=== PATIENT | female | born 1995 | race African-American/Black ===

== ENCOUNTER 2020-09-06 17:11 | Emergency (ER) | payer OTHER ==
[~2020-09-06] VITALS: Ht 165.1 cm; Wt 100.0 kg
[2020-09-06 17:16] VITALS: BP 106/67; Ht 165.1 cm; Wt 100.0 kg
[2020-09-06 17:47] LABS: NITRITE NEGATIVE (NEGATIVE)
[2020-09-06 17:48] LABS: BILIRUBIN NEGATIVE (NEGATIVE); KETONE NEGATIVE (NEGATIVE); UROBILINOGEN NORMAL mg/dL (< 2)
[2020-09-06 17:50] LABS: BACTERIA FEW HPF (NONE SEEN); HCG URINE NEGATIVE (NEGATIVE); WHITE CELLS - URINE 0-5 HPF (0-4)
[2020-09-06] MEDS ORDERED: DIFLUCAN150 MG PO (18:32)
[2020-09-06 19:11] LABS: BASOPHILS 0.2 % (0-2); EOSINOPHILS 0.6 % (0-7); HEMATOCRIT 39.3 % (36.0-48.0); HEMOGLOBIN 13.2 g/dL (12-16); IMMATURE GRANULOCYTES 0.2 % (0-5); LYMPHOCYTE ABS# 4.45 10x3/uL (1.18-3.74); LYMPHOCYTES 35.3 % (15-50); MCH 28.6 pg (26.0-34.0); MCHC 33.6 g/dL (31.0-37.0); MCV 85.1 fL (80.0-100.0); MEAN PLATELET VOLUME 12.2 fL (7.4-10.4); MONOCYTES 5.9 % (2-11); NEUTROPHILS 57.8 % (40-80); PLATELET COUNT 323 10x3/uL (130-400); RBC 4.62 10x6/uL (4.00-5.40); RDW 14.2 % (11.5-14.5); WBC 12.6 10x3/uL (4.8-10.8)
[2020-09-06 19:28] LABS: ANION GAP 14.9 mmol/L (8-16); CALCIUM 9.4 mg/dL (8.5-10.1); CARBON DIOXIDE 24.9 mmol/L (21.0-32.0); POTASSIUM - SERUM 3.8 mmol/L (3.5-5.1)
[2020-09-06 19:34] LABS: ALBUMIN 3.6 g/dL (3.4-5.0); BILIRUBIN - TOTAL 0.67 mg/dL (0.2-1.3); PROTEIN - SERUM 7.4 g/dL (6.4-8.2)
== END 2020-09-06 20:09 | disposition left against medical advice (07) ==
LOC: D.ER 17:11
PROVIDERS: Family Medicine
DX: N89.8 Other specified noninflammatory disorders of vagina (principal); R10.819 Abdominal tenderness, unspecified site

== ENCOUNTER 2020-09-13 19:13 | Emergency (ER) | payer OTHER ==
[~2020-09-13] VITALS: Ht 165.1 cm; Wt 90.9 kg
[~2020-09-13 19:13] MED LIST: DIFLUCAN150 MG PO
[2020-09-13 19:29] VITALS: Ht 165.1 cm; Wt 90.9 kg
[2020-09-13 20:05] LABS: BASOPHILS 0.2 % (0-2); EOSINOPHILS 0 % (0-7); HEMATOCRIT 38.1 % (36.0-48.0); IMMATURE GRANULOCYTES 0.2 % (0-5); LYMPHOCYTE ABS# 3.24 10x3/uL (1.18-3.74); LYMPHOCYTES 25.1 % (15-50); MCH 28.8 pg (26.0-34.0); MCHC 34.1 g/dL (31.0-37.0); MCV 84.5 fL (80.0-100.0); MEAN PLATELET VOLUME 12.3 fL (7.4-10.4); MONOCYTES 7.2 % (2-11); NEUTROPHIL ABS# 8.69 10x3/uL (1.56-6.13); NEUTROPHILS 67.3 % (40-80); PLATELET COUNT 270 10x3/uL (130-400); RBC 4.51 10x6/uL (4.00-5.40); RDW 14.4 % (11.5-14.5); WBC 12.9 10x3/uL (4.8-10.8)
[2020-09-13 20:17] LABS: ANION GAP 16.8 mmol/L (8-16); CALCIUM 9.3 mg/dL (8.5-10.1); POTASSIUM - SERUM 3.8 mmol/L (3.5-5.1)
[2020-09-13 20:24] LABS: BILIRUBIN - TOTAL 1.06 mg/dL (0.2-1.3); MAGNESIUM - SERUM 2.1 mg/dL (1.8-2.4)
[2020-09-13 20:32] LABS: HCG URINE NEGATIVE (NEGATIVE)
[2020-09-13 20:33] LABS: BILIRUBIN NEGATIVE (NEGATIVE); KETONE MODERATE mg/dL (NEGATIVE); NITRITE NEGATIVE (NEGATIVE); UROBILINOGEN NORMAL mg/dL (< 2)
[2020-09-13 20:34] LABS: UDS - AMPHET NEGATIVE QUAL (NEGATIVE); UDS - BARB NEGATIVE QUAL (NEGATIVE); UDS - BENZO NEGATIVE QUAL (NEGATIVE); UDS - COCAINE NEGATIVE QUAL (NEGATIVE); UDS - OPIATE NEGATIVE QUAL (NEGATIVE); UDS - PCP NEGATIVE QUAL (NEGATIVE); UDS - THC NEGATIVE QUAL (NEGATIVE)
[2020-09-13 20:37] LABS: BACTERIA MODERATE HPF (NONE SEEN)
[2020-09-13 21:54] VITALS: BP 177/79
[2020-09-13] MEDS ORDERED: FLAGYL500 MG PO (21:55)
[2020-09-13] MEDS ORDERED: MACROBID100 MG PO (21:55)
== END 2020-09-13 22:04 | disposition home or self-care (01) ==
LOC: D.ER 19:13
PROVIDERS: Family Medicine
DX: F29 Unspecified psychosis not due to a substance or known physiological condition (principal); N39.0 Urinary tract infection, site not specified

== ENCOUNTER 2020-09-17 19:19 | Emergency (ER) | payer OTHER ==
[~2020-09-17] VITALS: Ht 165.1 cm; Wt 90.9 kg
[~2020-09-17 19:19] MED LIST changes: +FLAGYL500 MG PO; +MACROBID100 MG PO
[2020-09-17 19:47] VITALS: BP 106/56; Ht 165.1 cm; Wt 90.9 kg
== END 2020-09-17 20:07 | disposition left against medical advice (07) ==
LOC: D.ER 19:19
DX: N93.9 Abnormal uterine and vaginal bleeding, unspecified (principal)